=== PATIENT | female | born 1945 | race African-American/Black ===

== ENCOUNTER 2021-06-01 09:13 | Outpatient (CLI) | payer MEDICARE ==
[2021-06-01] MEDS ORDERED: Iopamidol 370 76% 100 ML VIAL ONE (10:01)
== END 2021-06-01 09:14 | disposition home or self-care (01) ==
LOC: RAD 09:13
PROVIDERS: ATTEND Neurological Surgery
DX: I67.1 Cerebral aneurysm, nonruptured (principal); I67.82 Cerebral ischemia
CPT/HCPCS: 70496; 82565; Q9967

== ENCOUNTER 2021-06-21 09:50 | Outpatient (CLI) | payer MEDICARE | END 2021-06-21 09:51 | disposition home or self-care (01) | LOC: BICMAMMO 09:50 | PROVIDERS: ATTEND Obstetrics & Gynecology | DX: Z12.31 Encounter for screening mammogram for malignant neoplasm of breast (principal); Z80.3 Family history of malignant neoplasm of breast | CPT/HCPCS: 77063; 77067 ==

== ENCOUNTER 2022-10-21 09:45 | Day surgery (SDC) | payer MEDICARE ==
[~2022-10-21 09:45] MED LIST: Iron, Sodium Ferric Gluconate 250 MG in Sodium Chloride 0.9% 250 ML 250 ML IVPB SCH
[2022-10-21 10:37] LABS: #Basophils 0.1 thou/uL (0.0-0.2); #Eosinphils 0.1 thou/uL (0.0-0.7); #Lymphocytes 1.4 thou/uL (1.20-3.40); #Monocytes 0.4 thou/uL (0.11-0.59); %Basophils 0.9 % (0.0-1.0); %Eosinophils 1.6 % (0.0-10.0); %Lymphocytes 23.2 % (21.0-51.0); %Monocytes 7.2 % (0.0-10.0); %Neutrophils 67.2 % (42.0-75.0); Hemoglobin 9.3 g/dL (12.0-16.0); Mean Corpuscular HGB CONC 31.8 g/dL (32.0-36.0); Mean Corpuscular Hemoglobin 27.4 pg (27.0-31.0); Mean Corpuscular Volume 86.3 fl (78.0-98.0); Mean Platelet Volume 9.3 fL (7.4-10.4); Platelet Count 235 10x3/uL (130-400); RBC Distribution Width 15.9 % (11.5-14.5)
[2022-10-21 10:45] VITALS: BP 193/87
[2022-10-21] MEDS ORDERED: FLU VACC QS2022-23(65YR UP)/PF 240 MCG/0.7 ML SYRINGE IM ONE (10:45)
[2022-10-21] MEDS ORDERED: Ondansetron PF 4 MG/2 ML Vial ONE (12:36)
[2022-10-21] MEDS ORDERED: Ondansetron PF 4 MG/2 ML Vial IVP SCH (14:00)
== END 2022-10-21 13:20 | disposition short-term general hospital (02) ==
LOC: ONC/OP 09:45
PROVIDERS: ATTEND Internal Medicine Hematology & Oncology
DX: D50.0 Iron deficiency anemia secondary to blood loss (chronic) (principal); Z88.0 Allergy status to penicillin; Z88.1 Allergy status to other antibiotic agents; Z88.2 Allergy status to sulfonamides; Z88.5 Allergy status to narcotic agent; Z88.7 Allergy status to serum and vaccine; Z91.010 Allergy to peanuts; Z91.041 Radiographic dye allergy status
CPT/HCPCS: 85025; 96365; 96375; G0463; 99215; J2405

== ENCOUNTER 2022-10-21 13:09 | Inpatient (IN) | payer MEDICARE ==
[2022-10-21] MEDS ORDERED: Metoclopramide HCl 10 MG/2 ML VIAL ONE (13:58)
[2022-10-21 14:04] LABS: #Lymphocytes 3.3 thou/uL (1.20-3.40); #Monocytes 0.2 thou/uL (0.11-0.59); #Neutrophils 3.1 thou/uL (1.40-6.50); %Basophils 0.5 % (0.0-1.0); %Eosinophils 0.7 % (0.0-10.0); %Lymphocytes 49.7 % (21.0-51.0); %Monocytes 3.4 % (0.0-10.0); %Neutrophils 45.8 % (42.0-75.0); Hemoglobin 10.9 g/dL (12.0-16.0); Mean Corpuscular HGB CONC 30.8 g/dL (32.0-36.0); Mean Corpuscular Hemoglobin 27.3 pg (27.0-31.0); Mean Corpuscular Volume 88.5 fl (78.0-98.0); Mean Platelet Volume 9.3 fL (7.4-10.4); Platelet Count 268 10x3/uL (130-400); White Blood Cell (WBC) Count 6.7 10x3/uL (4.8-10.8)
[2022-10-21 14:18] LABS: ALT (SGPT) 7 U/L (8-55); AST (SGOT) 14 U/L (5-34); Albumin 3.2 g/dL (3.4-4.8); Alkaline Phosphatase 75 U/L (40-110); Anion Gap 18 mmol/L (10-20); BUN (Urea Nitrogen) 30 mg/dL (9.8-20.1); Bilirubin, Total 0.2 mg/dL (0.2-1.2); CK (CPK) 136 U/L (29-168); Calc. Creatinine Clearance 0 mL/min (70-130); Calcium 8.7 mg/dL (7.8-10.44); Carbon Dioxide 12 mmol/L (23-31); Chloride 112 mmol/L (98-107); Estimated GFR 34; Globulin 3.1 g/dL (2.4-3.5); Glucose 297 mg/dL (83-110); Lipase 173 U/L (8-78); Magnesium 1.9 mg/dL (1.6-2.6); Potassium 3.3 mmol/L (3.5-5.1); Protein, Total 6.3 g/dL (5.8-8.1); Sodium 139 mmol/L (136-145)
[2022-10-21 14:19] LABS: INR-International Normal Ratio 1.1
[2022-10-21 14:20] LABS: PTT 33.5 sec (22.9-36.1)
[2022-10-21] MEDS ORDERED: Bisacodyl 5 MG TAB PO PRN (15:40)
[2022-10-21] MEDS ORDERED: Senokot S 8.6-50 MG TAB PO PRN (15:40)
[2022-10-21] MEDS ORDERED: Acetaminophen 325 MG TAB PO PRN (15:40)
[2022-10-21] MEDS ORDERED: Ondansetron PF 4 MG/2 ML Vial IVP PRN (15:40)
[2022-10-21] MEDS ORDERED: Bisacodyl 10 MG SUPP PR PRN (15:40)
[2022-10-21] MEDS ORDERED: metroNIDAZOLE 500 MG in Premix Bag 1 BAG IVPB SCH ×2 (16:00→22:00)
[2022-10-21 17:08] LABS: SARS-CoV-2 NAA Rapid Test Not Detected (NotDetected)
[2022-10-21 18:00] LABS: Lactic Acid 3.8 mmol/L (0.5-2.2)
[2022-10-21 18:08] LABS: Troponin I 0.186 ng/mL (< 0.028)
[2022-10-21] MEDS ORDERED: Dextrose 50% Abboject 50 ML SYRINGE SLOW IVP PRN (19:04)
[2022-10-21] MEDS ORDERED: Dextrose 5% in Water 1,000 ML IV PRN (19:04)
[2022-10-21] MEDS ORDERED: HumaLOG 300 UNITS/3 ML VIAL SC PRN ×2 (19:04)
[2022-10-21 21:12] LABS: Free T4 (Free Thyroxine) 0.92 ng/dL (0.70-1.48)
[2022-10-21 22:08] VITALS: BMI 23.3
[2022-10-21] MEDS: Lactated Ringer's 1,000 ML IV SCH (22:12)
[2022-10-21 22:41] LABS: Actual Bicarbonate (HCO3v) 18 mEq/L (22-28); Base Excess -4.9 mEq/L (-2.0 to +3.0); Calcium, Ionized (venous) 1.03 mmol/L (1.16-1.32); Chloride (VBG) 111 mmol/L (98-106); Hemoglobin (Hb) 10.1 g/dL (11.7-16.1); Potassium (VBG) 4.44 mmol/L (3.70-5.30); Sodium 139.2 mmol/L (133-146); pH (venous) 7.44 (7.32-7.43)
[2022-10-21] MEDS ORDERED: Lisinopril 20 MG TAB PO SCH (23:15)
[2022-10-22 02:32] LABS: Bacteria/HPF 3+ HPF (None Seen); Bilirubin Negative (Negative); Blood, Urine Trace (Negative); CAUTI Indications for Culture Alt mental st,lethar; Clarity Clear (Clear); Glucose, Urine (Dipstick) 50 mg/dL (Negative); Ketone, Urine Negative (Negative); Leukocyte 25 Leu/uL (Negative); Nitrite Negative (Negative); Protein, Urine (Dipstick) Negative (Neg-Trace); RBC/HPF 0-3 HPF (0-3); Specific Gravity, Urine 1.011 (1.002-1.036); Squamous Epithelial 0-3 HPF (0-3); Urobilinogen Normal mg/dL (Less than 2); WBC/HPF 0-3 HPF (0-3)
[2022-10-22 02:35] LABS: Urine Culture Reflex No No
[2022-10-22 05:35] LABS: Hemoglobin A1c 6.5 % (4.0-6.0)
[2022-10-22 05:40] LABS: #Lymphocytes 1.6 thou/uL (1.20-3.40); #Monocytes 0.8 thou/uL (0.11-0.59); %Basophils 0.4 % (0.0-1.0); %Eosinophils 0.3 % (0.0-10.0); %Lymphocytes 14.2 % (21.0-51.0); %Monocytes 6.7 % (0.0-10.0); %Neutrophils 78.4 % (42.0-75.0); Hemoglobin 8.2 g/dL (12.0-16.0); Mean Corpuscular Volume 87.5 fl (78.0-98.0); Mean Platelet Volume 9.5 fL (7.4-10.4); Platelet Count 179 10x3/uL (130-400); Red Blood Cell (RBC) Count 2.95 mill/uL (4.20-5.40); White Blood Cell (WBC) Count 11.4 10x3/uL (4.8-10.8)
[2022-10-22 05:51] LABS: ALT (SGPT) 7 U/L (8-55); AST (SGOT) 16 U/L (5-34); Albumin 2.9 g/dL (3.4-4.8); Alkaline Phosphatase 59 U/L (40-110); Anion Gap 12 mmol/L (10-20); BUN (Urea Nitrogen) 31 mg/dL (9.8-20.1); Bilirubin, Direct 0.1 mg/dL (0.1-0.3); Bilirubin, Total 0.2 mg/dL (0.2-1.2); Calc. Creatinine Clearance 28 mL/min (70-130); Calcium 8.1 mg/dL (7.8-10.44); Carbon Dioxide 19 mmol/L (23-31); Cardiac Risk 2.2 (Less than 4.5); Chloride 114 mmol/L (98-107); Cholesterol 95 mg/dl (< 200 Desired); Estimated GFR 31; Glucose 95 mg/dL (83-110); HDL Cholesterol 44 mg/dL (>60 Neg Risk); LDL Cholesterol, Calculated 30 mg/dL; Magnesium 1.6 mg/dL (1.6-2.6); Protein, Total 5.6 g/dL (5.8-8.1); Sodium 141 mmol/L (136-145); Triglycerides 106 mg/dL (Less than 150)
[2022-10-22] MEDS ORDERED: Dextrose 10% in Water 1,000 ML IV SCH ×2 (06:00→09:11)
[2022-10-22 06:08] LABS: Critical Call Chem Troponin I RESULT DECREASING; Troponin I 0.762 ng/mL (< 0.028)
[2022-10-22] MEDS: Lactated Ringer's 1,000 ML IV SCH (06:18)
[2022-10-22] MEDS ORDERED: Lisinopril 20 MG TAB PO SCH (07:30)
[2022-10-22] MEDS ORDERED: Cosyntropin 250 MCG VIAL SLOW IVP SCH (09:15)
[2022-10-22] MEDS: Dextrose 5 %-0.45 % NaCl 1,000 ML IV SCH ×2 (10:05→21:11)
[2022-10-22] MEDS: Amlodipine 10 MG TAB PO SCH (21:11)
[2022-10-22] MEDS: Simvastatin 10 MG TAB PO SCH (21:12)
[2022-10-23 05:04] LABS: #Eosinphils 0.2 thou/uL (0.0-0.7); #Lymphocytes 1.8 thou/uL (1.20-3.40); #Monocytes 0.5 thou/uL (0.11-0.59); #Neutrophils 3.6 thou/uL (1.40-6.50); %Basophils 0.8 % (0.0-1.0); %Eosinophils 2.6 % (0.0-10.0); %Lymphocytes 29.1 % (21.0-51.0); %Monocytes 7.9 % (0.0-10.0); %Neutrophils 59.6 % (42.0-75.0); Hemoglobin 7.7 g/dL (12.0-16.0); Mean Corpuscular HGB CONC 32.5 g/dL (32.0-36.0); Mean Corpuscular Hemoglobin 28.2 pg (27.0-31.0); Mean Corpuscular Volume 86.8 fl (78.0-98.0); Mean Platelet Volume 9.4 fL (7.4-10.4); Platelet Count 158 10x3/uL (130-400); RBC Distribution Width 16.1 % (11.5-14.5); Red Blood Cell (RBC) Count 2.73 mill/uL (4.20-5.40)
[2022-10-23 05:28] LABS: Anion Gap 10 mmol/L (10-20); BUN (Urea Nitrogen) 15 mg/dL (9.8-20.1); Calc. Creatinine Clearance 42 mL/min (70-130); Calcium 8.7 mg/dL (7.8-10.44); Carbon Dioxide 21 mmol/L (23-31); Chloride 112 mmol/L (98-107); Estimated GFR 49; Glucose 139 mg/dL (83-110); Magnesium 1.6 mg/dL (1.6-2.6); Potassium 3.5 mmol/L (3.5-5.1); Sodium 139 mmol/L (136-145)
[2022-10-23] MEDS: Dextrose 5 %-0.45 % NaCl 1,000 ML IV SCH (06:35)
[2022-10-23 09:23] LABS: ALT (SGPT) Less than 7 U/L (8-55); AST (SGOT) 16 U/L (5-34); Albumin 3.3 g/dL (3.4-4.8); Alkaline Phosphatase 60 U/L (40-110); Bilirubin, Direct 0.1 mg/dL (0.1-0.3); Bilirubin, Total 0.2 mg/dL (0.2-1.2); Protein, Total 6.1 g/dL (5.8-8.1)
[2022-10-23] MEDS ORDERED: hydrALAZINE 25 MG TAB PO SCH ×2 (12:30→21:00)
[2022-10-23] MEDS: hydrALAZINE 20 MG/ML VIAL SLOW IVP PRN ×3 (14:14→23:00)
[2022-10-23] MEDS ORDERED: Lisinopril 10 MG TAB PO SCH (15:30)
[2022-10-23] MEDS: Simvastatin 10 MG TAB PO SCH (21:17)
[2022-10-23] MEDS: Amlodipine 10 MG TAB PO SCH (21:17)
[2022-10-24 04:47] LABS: #Eosinphils 0.1 thou/uL (0.0-0.7); #Lymphocytes 1.9 thou/uL (1.20-3.40); #Monocytes 0.6 thou/uL (0.11-0.59); #Neutrophils 4.1 thou/uL (1.40-6.50); %Basophils 0.5 % (0.0-1.0); %Eosinophils 1.9 % (0.0-10.0); %Monocytes 8.5 % (0.0-10.0); %Neutrophils 61.1 % (42.0-75.0); Mean Corpuscular HGB CONC 32.1 g/dL (32.0-36.0); Mean Corpuscular Hemoglobin 27.6 pg (27.0-31.0); Mean Platelet Volume 9.4 fL (7.4-10.4); Platelet Count 173 10x3/uL (130-400); RBC Distribution Width 16.3 % (11.5-14.5); Red Blood Cell (RBC) Count 2.89 mill/uL (4.20-5.40); White Blood Cell (WBC) Count 6.7 10x3/uL (4.8-10.8)
[2022-10-24 05:06] LABS: Anion Gap 12 mmol/L (10-20); BUN (Urea Nitrogen) 12 mg/dL (9.8-20.1); Calc. Creatinine Clearance 43 mL/min (70-130); Calcium 9.3 mg/dL (7.8-10.44); Carbon Dioxide 21 mmol/L (23-31); Chloride 110 mmol/L (98-107); Estimated GFR 52; Glucose 99 mg/dL (83-110); Magnesium 1.5 mg/dL (1.6-2.6); Potassium 3.3 mmol/L (3.5-5.1); Sodium 140 mmol/L (136-145)
[2022-10-24] MEDS ORDERED: Magnesium 2 GM/50 ML(in water) 4 GM in Premix Bag 1 BAG IVPB SCH (07:30)
[2022-10-24] MEDS ORDERED: Potassium Chloride 20 MEQ TAB PO SCH (07:30)
[2022-10-24] MEDS: Lisinopril 20 MG TAB PO SCH (08:50)
[2022-10-24] MEDS ORDERED: Lorazepam 0.5 MG TAB PO PRN (13:38)
[2022-10-24] MEDS ORDERED: Lorazepam 0.5 MG TAB PO SCH ×2 (13:45)
[2022-10-24] MEDS: Amlodipine 10 MG TAB PO SCH (20:17)
[2022-10-24] MEDS: Simvastatin 10 MG TAB PO SCH (20:18)
[2022-10-24] MEDS: Lorazepam 0.5 MG TAB PO PRN (23:13)
[2022-10-25 04:48] LABS: #Eosinphils 0.1 thou/uL (0.0-0.7); #Lymphocytes 1.6 thou/uL (1.20-3.40); #Monocytes 0.5 thou/uL (0.11-0.59); #Neutrophils 3.2 thou/uL (1.40-6.50); %Basophils 0.7 % (0.0-1.0); %Eosinophils 2.6 % (0.0-10.0); %Monocytes 9.5 % (0.0-10.0); %Neutrophils 58.1 % (42.0-75.0); Hemoglobin 8.4 g/dL (12.0-16.0); Mean Corpuscular HGB CONC 31.5 g/dL (32.0-36.0); Mean Corpuscular Hemoglobin 27.4 pg (27.0-31.0); Mean Corpuscular Volume 86.9 fl (78.0-98.0); Mean Platelet Volume 9.5 fL (7.4-10.4); Platelet Count 180 10x3/uL (130-400); RBC Distribution Width 16.6 % (11.5-14.5); Red Blood Cell (RBC) Count 3.05 mill/uL (4.20-5.40); White Blood Cell (WBC) Count 5.4 10x3/uL (4.8-10.8)
[2022-10-25 05:10] LABS: Anion Gap 11 mmol/L (10-20); BUN (Urea Nitrogen) 15 mg/dL (9.8-20.1); Calc. Creatinine Clearance 39 mL/min (70-130); Calcium 9.1 mg/dL (7.8-10.44); Carbon Dioxide 25 mmol/L (23-31); Chloride 107 mmol/L (98-107); Estimated GFR 46; Glucose 97 mg/dL (83-110); Magnesium 1.8 mg/dL (1.6-2.6); Potassium 3.7 mmol/L (3.5-5.1); Sodium 139 mmol/L (136-145)
[2022-10-25] MEDS: Lisinopril 20 MG TAB PO SCH (07:46)
[2022-10-25] MEDS: Lorazepam 0.5 MG TAB PO PRN ×2 (07:46→16:12)
[2022-10-25 15:48] VITALS: BP 184/80; TEMP 98.2
[2022-10-25] MEDS ORDERED: hydrALAZINE 25 MG TAB PO SCH (21:00)
[2022-10-25] MEDS ORDERED: Valsartan 80 MG TAB PO SCH (21:00)
[2022-10-26] MEDS ORDERED: NIFEdipine XL 60 MG TAB PO SCH (09:00)
== END 2022-10-25 18:59 | disposition home or self-care (01) | DRG 393 ==
LOC: ERS 13:09 → ERHOLD 15:45 → 2NO 21:41
PROVIDERS: ADMIT Family Medicine; ATTEND Family Medicine
DX: K52.1 Toxic gastroenteritis and colitis (principal); I21.A1 Myocardial infarction type 2; E87.20 Acidosis, unspecified; N17.9 Acute kidney failure, unspecified; R11.2 Nausea with vomiting, unspecified; I95.2 Hypotension due to drugs; D50.9 Iron deficiency anemia, unspecified; I10 Essential (primary) hypertension; E03.8 Other specified hypothyroidism; Z88.5 Allergy status to narcotic agent; Z88.2 Allergy status to sulfonamides; Z88.0 Allergy status to penicillin; Z88.7 Allergy status to serum and vaccine; Z91.041 Radiographic dye allergy status; Z91.010 Allergy to peanuts; Z79.899 Other long term (current) drug therapy; E11.51 Type 2 diabetes mellitus with diabetic peripheral angiopathy without gangrene; T45.4X5A Adverse effect of iron and its compounds, initial encounter
CPT/HCPCS: 36415; 36416; 71045; 74176; 80048; 80053; 80061; 80076; 80400; 81001; 82247; 82533; 82550; 82805; 83036; 83605; 83615; 83690; 83735; 84439; 84443; 84481; 84484; 85025; 85610; 85730; 86850; 86900; 86901; 87040; 87086; 93005; 93010; 93306; 96361; 96365; 96374; 96375; 99215; G0463; J0360; J1956; J2405; J2765; J3475; J7042; J7120

== ENCOUNTER 2024-01-05 11:37 | Outpatient (CLI) | payer MEDICARE | END 2024-01-05 11:38 | disposition home or self-care (01) | LOC: BICMAMMO 11:37 | PROVIDERS: ATTEND Internal Medicine | DX: Z12.31 Encounter for screening mammogram for malignant neoplasm of breast (principal); Z80.3 Family history of malignant neoplasm of breast | CPT/HCPCS: 77063; 77067 ==